=== PATIENT | female | born 1930 | race Caucasian/White ===

== ENCOUNTER 2018-11-05 17:04 | Inpatient (IN) | payer MEDICARE, BC ==
[~2018-11-05] VITALS: Ht 157.5 cm; Wt 50.8 kg
[~2018-11-05 17:04] MED LIST: METO-358 PO; NIFE30TA89 PO
[2018-11-05 17:57] VITALS: BP 149/45
[2018-11-05] MEDS ORDERED: ONDANSETRON 4 MG/2 ML VIAL IV PRN (18:30)
[2018-11-05] MEDS ORDERED: MAGNESIUM HYDROXIDE 30 ML LIQUID UDC PO PRN (18:30)
[2018-11-05] MEDS ORDERED: ZOLPIDEM 5 MG TABLET PO PRN (18:30)
[2018-11-05] MEDS ORDERED: IV NORMAL SALINE 500 ML IV ONE (18:30)
[2018-11-05] MEDS ORDERED: ACETAMINOPHEN 325 MG TABLET PO PRN (18:30)
[2018-11-05 19:00] VITALS: BP 154/37
--- NOTE | 2018-11-05 19:45 | NUR ---
Received pt on tele unit, under the care of MADAY LOVE. Admission time at 1730. Pt awake, AxO x4. Tele placed and noted to be SR-SB with HR of 54. Pertinent assessments and unit orientation completed. Safety precautions and comfort measures implemented. Bed in lowest locked position, bed alarm on. Call light within reach. Will continue to monitor and carry out all orders. Addendum: 11/06/18 at 0210 by CLAUDIA MONTELONGO RN Pt denies any complaints of pain, SOB or dizziness at this time. Shows no s/s of acute distress.
[2018-11-05] MEDS: IV NS 1000 ML 1,000 ML IV PRN (20:36)
[2018-11-05] MEDS: DOCUSATE SODIUM 100 MG CAPSULE PO SCH (20:51)
[2018-11-05] MEDS: ENOXAPARIN SODIUM 40 MG/0.4 ML DISP.SYRIN SQ SCH (20:54)
[2018-11-05] MEDS ORDERED: FLEET ENEMA 133 ML BOTTLE RC PRN (23:45)
[2018-11-06] VITALS (9 sets, daily range): BP systolic 110–209; BP diastolic 34–67
[2018-11-06] MEDS: HYDROCODONE/APAP 5-325MG TABLET PO PRN ×3 (03:16→14:07)
[2018-11-06 06:25] LABS: BASOPHILS % (AUTO) 0.9 % (0.0-2.0); EOSINOPHILS # (AUTO) 0.1 K/uL (0.0-0.7); EOSINOPHILS % (AUTO) 2.7 % (0.0-7.0); HEMATOCRIT 29.9 % (31.2-41.9); HEMOGLOBIN 10.5 g/dL (10.9-14.3); LYMPHOCYTES # (AUTO) 1.1 K/uL (20.0-40.0); LYMPHOCYTES % (AUTO) 20.4 % (20.5-51.5); MEAN CORPUSCULAR HEMOGLOBIN 32.6 uug (24.7-32.8); MEAN CORPUSCULAR HGB CONC 35 g/dL (32.3-35.6); MEAN CORPUSCULAR VOLUME 93.1 fL (75.5-95.3); MONOCYTES # (AUTO) 0.6 K/uL (2.0-10.0); MONOCYTES % (AUTO) 11.7 % (0.0-11.0); NEUTROPHILS # (AUTO) 3.4 K/uL (1.8-8.9); NEUTROPHILS % (AUTO) 64.3 % (38.5-71.5); PLATELET COUNT (AUTO) 175 K/uL (179-408); RED BLOOD CELL COUNT(AUTO) 3.21 MIL/uL (3.63-4.92); WHITE BLOOD COUNT (AUTO) 5.3 K/uL (3.8-11.8)
[2018-11-06 06:36] LABS: CARBON DIOXIDE 28 mmol/L (21-32); CHLORIDE 107 mmol/L (98-107); CREATININE 0.9 mg/dL (0.6-1.3); GLUCOSE 97 mg/dL (74-106); MAGNESIUM 2.3 mg/dL (1.8-2.4); PHOSPHOROUS 3.2 mg/dL (2.5-4.9); POTASSIUM 3.8 mmol/L (3.5-5.1); UREA NITROGEN, BLOOD 25 mg/dL (7-18)
--- NOTE | 2018-11-06 06:42 | NUR ---
Pt slept well t/o shift. Pain med given x1 with effect. BP controlled during shift. Safety precautions maintained at all times. Call light within reach. Will endorse accordingly. Addendum: 11/06/18 at 0647 by CLAUDIA MONTELONGO RN No n/v during shift. Denies pain, SOB or dizziness at this time. Pt shows no s/s of acute distress. Will continue to monitor.
--- NOTE | 2018-11-06 07:30 | NUR ---
RECEIVED PATIENT RESTING IN BED, NO S/S OF PAIN OR S/S OF ACUTE DISTRESS. WILL CONTINUE TREATMENT PLAN.
[2018-11-06] MEDS: METOPROLOL SUCCINATE XL 50 MG TAB.SR.24H PO SCH (08:28)
--- NOTE | 2018-11-06 08:30 | NUR ---
ADMINISTER MEDICATIONS TO PATIENT AND TOLERATED WELL, NO C/O OF PAIN OR DISCOMFORT AT THIS TIME. PROVEDED COMFORT AT ALL TIMES.
[2018-11-06] MEDS ORDERED: NIFEdipine XL 30 MG TABSR PO SCH (09:00)
[2018-11-06] MEDS ORDERED: METOPROLOL SUCCINATE XL 100 MG TAB.SR.24H PO SCH (09:00)
[2018-11-06] MEDS ORDERED: IV NORMAL SALINE 500 ML IV ONE (09:30)
[2018-11-06] MEDS: IV NS 1000 ML 1,000 ML IV PRN (10:16)
[2018-11-06] MEDS ORDERED: NIFEdipine XL 30 MG TABSR PO ONE ×2 (11:15→11:30)
[2018-11-06] MEDS ORDERED: hydrALAZINE HCL 20 MG/1 ML VIAL IV PRN (11:30)
--- NOTE | 2018-11-06 11:30 | NUR ---
MADAY LOVE, SEEN PATIENT AND NOTIFIED OF PATIENT HIGH BLOOD PRESSURE DURING SITTING , LAYING, AND STANDING WITH ORDER OF IV NS 500ML. AT 10:00,PATIENT REPORTED PAIN IN HER LEFT LEG AND PRN PAIN MEDICATION GIVEN, NO ACUTE DISTRESS NOTED AT THIS TIME , CONTINUE TO MONITOR. AT 10:50 PT THERAPY VISITED PATIENT TO EVAL AND UNABLE TO TREAT DUE TO HIGH BLOOD PRESSURE AND ENSURE THAT THEY WILL COME BACK IN THE AFTERNOON TO SEE THE PATIENT . AT 11:15 PATIENT SEEN AND EVAL BY DR CORREA, AND NOTIFIED ABOUT THE PATIENT'S HIGH BLOOD PRESSURE WITH ORDER OF INCREASED PROCARDIA 90MG.
[2018-11-06] MEDS: hydrALAZINE HCL 25 MG TABLET PO PRN (14:06)
--- NOTE | 2018-11-06 14:15 | NUR ---
PATIENT REPORTED PAIN AND PRN PAIN MEDS GIVEN AND HOT COMPRESS GIVEN. PT THERAPY CAME TO REVISIT AND FOLLOW UP WITH THE PATIENT.
--- NOTE | 2018-11-06 16:10 | NUR ---
CHECK PATIENT WITH NO C/O PAIN OR DISCOMFORT AT THIS TIME, PATIENT LAYING IN BED , CALM AND WATCHING TV. CHECK BLOOD PRESSURE , 157/34 AND HR 63. CONTINUE TO PROVIDE COMFORT AND SAFETY AT ALL TIMES.
[2018-11-06] MEDS ORDERED: MORPHINE SULFATE 2 MG/1 ML DISP.SYRIN IV PRN (18:15)
[2018-11-06] MEDS: MORPHINE SULFATE 4 MG/1 ML DISP.SYRIN IV PRN (18:19)
--- NOTE | 2018-11-06 18:25 | NUR ---
PATIENT CONTINUE WITH PAIN AFTER NORCO WAS GIVEN, NOTIFIED KATE, N.P., WITH NEW ORDERS OF MORPHINE 1MG IV q4H PRN, ADMINISTERED AND TOLERATED WELL, WILL CONTINUE TO MONITOR
--- NOTE | 2018-11-06 19:45 | NUR ---
Pt awake, sitting up in bed. Tele noted to be SR with HR of 64. Discussed plan of care with pt, pt cooperative. Pt complains of no pain at this time. Denies SOB, dizziness or n/v. Safety precautions and comfort measures in place. Bed alarm on, call light within reach. Will continue to monitor and carry out all orders.
[2018-11-06] MEDS: ENOXAPARIN SODIUM 40 MG/0.4 ML DISP.SYRIN SQ SCH (20:00)
[2018-11-06] MEDS: DOCUSATE SODIUM 100 MG CAPSULE PO SCH (20:00)
[2018-11-07] VITALS: BP 149/41
[2018-11-07] MEDS: HYDROCODONE/APAP 5-325MG TABLET PO PRN ×2 (00:21→07:59)
[2018-11-07] MEDS: IV NS 1000 ML 1,000 ML IV PRN ×2 (03:50→17:53)
[2018-11-07 04:00] VITALS: BP 127/36
--- NOTE | 2018-11-07 04:15 | NUR ---
Pt IV site infiltrated. IV removed, elevated affected arm, provided pt with warm compress. Insertion of new IV on Left wrist 22 gauge. IV site patent with no s/s of redness or swelling. Pt has no complaints of pain, shows no signs of acute distress. Will continue to monitor.
[2018-11-07 06:16] LABS: BASOPHILS % (AUTO) 0.6 % (0.0-2.0); EOSINOPHILS # (AUTO) 0.1 K/uL (0.0-0.7); EOSINOPHILS % (AUTO) 2.5 % (0.0-7.0); HEMATOCRIT 31.2 % (31.2-41.9); HEMOGLOBIN 10.6 g/dL (10.9-14.3); LYMPHOCYTES # (AUTO) 1.2 K/uL (20.0-40.0); MEAN CORPUSCULAR HEMOGLOBIN 31.7 uug (24.7-32.8); MEAN CORPUSCULAR HGB CONC 34 g/dL (32.3-35.6); MEAN CORPUSCULAR VOLUME 93.9 fL (75.5-95.3); MONOCYTES # (AUTO) 0.6 K/uL (2.0-10.0); NEUTROPHILS # (AUTO) 3.9 K/uL (1.8-8.9); NEUTROPHILS % (AUTO) 65.9 % (38.5-71.5); PLATELET COUNT (AUTO) 177 K/uL (179-408); RED BLOOD CELL COUNT(AUTO) 3.33 MIL/uL (3.63-4.92); WHITE BLOOD COUNT (AUTO) 5.9 K/uL (3.8-11.8)
[2018-11-07 06:32] LABS: CARBON DIOXIDE 28 mmol/L (21-32); CHLORIDE 109 mmol/L (98-107); CREATININE 0.8 mg/dL (0.6-1.3); GLUCOSE 97 mg/dL (74-106); MAGNESIUM 2.1 mg/dL (1.8-2.4); PHOSPHOROUS 3.1 mg/dL (2.5-4.9); UREA NITROGEN, BLOOD 17 mg/dL (7-18)
[2018-11-07 07:58] VITALS: BP 168/45
[2018-11-07] MEDS: NIFEdipine XL 90 MG TABSR PO SCH (08:00)
[2018-11-07] MEDS: METOPROLOL SUCCINATE XL 50 MG TAB.SR.24H PO SCH (08:00)
[2018-11-07] MEDS ORDERED: NIFEdipine XL 60 MG TABSR PO SCH ×2 (09:00)
[2018-11-07] MEDS ORDERED: NIFEdipine XL 30 MG TABSR PO SCH (09:00)
[2018-11-07 11:13] VITALS: BP 166/58
[2018-11-07] MEDS: hydrALAZINE HCL 25 MG TABLET PO PRN (12:55)
[2018-11-07] MEDS ORDERED: IV NORMAL SALINE 250 ML IV ONE (14:27)
[2018-11-07] MEDS ORDERED: SWABABLE VALVE TRANSFER SET EA MC ONE (14:27)
[2018-11-07] MEDS ORDERED: IOHEXOL 300MG/ML 100 ML INFUS..BTL ONE (14:27)
[2018-11-07] MEDS ORDERED: BISACODYL 10 MG SUPP.RECT RC PRN (14:45)
[2018-11-07 15:18] VITALS: BP 126/36
--- NOTE | 2018-11-07 19:00 | NUR ---
Received patient lying on bed awake alert oriented . Verbally responsive .Able to make needs known . On low bed position . Side rails up as appropriate . No s/s of distress noted . Afebrile . All needs met and attended . Kept clean and dry .
[2018-11-07 19:58] VITALS: BP 139/40
[2018-11-07] MEDS: DOCUSATE SODIUM 100 MG CAPSULE PO SCH (21:46)
[2018-11-07] MEDS: ENOXAPARIN SODIUM 40 MG/0.4 ML DISP.SYRIN SQ SCH (21:47)
--- NOTE | 2018-11-08 03:36 | NUR ---
Patient refused to wear DVT pump sleeves . Gets agitated .Explained risks factors .
[2018-11-08 04:39] VITALS: BP 155/43
[2018-11-08] MEDS: MORPHINE SULFATE 4 MG/1 ML DISP.SYRIN IV PRN (05:53)
--- NOTE | 2018-11-08 07:18 | NUR ---
PATIENT SLEPT MOST OF THE NIGHT, ASSISTED WITH TOILETING, CONT ON PAIN MANAGEMENT OF LEFT LEG AND LEFT GROIN/PELVIC AREA, BP STABLE, CONT TO REFUSED DVT PUMP SLEVES. ENDORSED TO NEXT SHIFT.
--- NOTE | 2018-11-08 08:04 | NUR ---
Awake, alert, complaining of left pelvic pain. Noted left heel black, elevated over rolled towel and pillow to off load. IVF infusing
[2018-11-08] MEDS: METOPROLOL SUCCINATE XL 50 MG TAB.SR.24H PO SCH (08:23)
[2018-11-08] MEDS: NIFEdipine XL 90 MG TABSR PO SCH (08:23)
[2018-11-08] MEDS: HYDROCODONE/APAP 5-325MG TABLET PO PRN (08:23)
--- NOTE | 2018-11-08 11:00 | NUR ---
Bed bath given. Wound care done to left heel. Heels Off lead over pillows. Noted sacral redness. Z guard applied. Turned to sides. Air mattress ordered.
[2018-11-08] MEDS: IV NS 1000 ML 1,000 ML IV PRN (11:05)
[2018-11-08 11:37] VITALS: BP 146/41
--- NOTE | 2018-11-08 14:00 | NUR ---
Turned to sides. Off loading of heels over pillow.
[2018-11-08] MEDS ORDERED: Z GUARD REMEDY PASTE 57 GM TUBE TOP PRN (15:00)
[2018-11-08 16:18] VITALS: BP 149/48
--- NOTE | 2018-11-08 18:34 | NUR ---
With fair appetite. Kept dry and comfortable
--- NOTE | 2018-11-08 19:30 | NUR ---
RECEIVED PATIENT IN BED ALERT ORIENTED, NO COMPLAIN OF PAIN AT THIS TIME. KEPT BILATERAL HEELS FLOATED WITH PILLOW, REORIENT PATIENT THAT SHE NEEDS TO BE REPOSITION EVERY TWO HOURS TO PREVENT SORES. KEPT CLEAN AND DRY, CALL LIGHT WITHIN REACH.
[2018-11-08 20:00] VITALS: BP 145/40
[2018-11-08] MEDS: DOCUSATE SODIUM 100 MG CAPSULE PO SCH (20:23)
[2018-11-08] MEDS: ENOXAPARIN SODIUM 40 MG/0.4 ML DISP.SYRIN SQ SCH (20:24)
[2018-11-08] MEDS: OXYCODONE HCL 5 MG TABLET PO PRN (21:02)
[2018-11-09] MEDS: IV NS 1000 ML 1,000 ML IV PRN ×2 (02:51→14:53)
[2018-11-09] MEDS: OXYCODONE HCL 5 MG TABLET PO PRN ×2 (05:39→11:40)
--- NOTE | 2018-11-09 06:39 | NUR ---
PATIENT SLEPT FOR AT LEAST 8 HRS, CONT ON PAIN MANAGEMENT OF LEFT PELVIC, LEFT THIGH/LEG PAIN, KEPT BOTH HEELS FLOATED WITH PILLOW, ASSISTED WITH TOILETING. CONT TO MONITOR.
[2018-11-09 06:46] VITALS: BP 167/43
[2018-11-09 08:20] VITALS: BP 190/92
[2018-11-09] MEDS: METOPROLOL SUCCINATE XL 50 MG TAB.SR.24H PO SCH (08:23)
[2018-11-09] MEDS: NIFEdipine XL 90 MG TABSR PO SCH (08:24)
--- NOTE | 2018-11-09 15:50 | NUR ---
PATIENT TRANSFERRED FROM ICU. PATIENT IS IN STABLE CONDITION. RESTING COMFORTABLY. IV PATENT AND INTACT. Addendum: 11/09/18 at 1834 by SWETA GARCIA RN DISREGARD, WRONG PATIENT.
[2018-11-09 16:20] VITALS: BP 134/45
--- NOTE | 2018-11-09 18:20 | NUR ---
PATIENT ALERT AND ORIENTED, ABLE TO MAKE NEEDS KNOWN. AMBULATE TO TOILETING AND BED COMMODE WITH ASSIST, ABLE TO TOLERATE WELL. PROVIDED ALL NEEDS. NO SOB NOTED AT THIS TIME, NO C/O PAIN AT THIS TIME, WILL CONTINUE TO MONITOR. ON IV FLUID OF NS AT 75CC/HR, INTACT AND PATENT. CONTINUE TREATMENT PLAN.
[2018-11-09 20:04] VITALS: BP 161/51
--- NOTE | 2018-11-09 20:11 | NUR ---
PATIENT IS AWAKE IN BED, AAOX3. DENIES PAIN/DIZZINESS OR ANY DISTRESS ON ASSESSMENT. SAFETY MEASURES IN PLACE. WILL CONTINUE TO MONITOR PATIENT
[2018-11-09] MEDS: ENOXAPARIN SODIUM 40 MG/0.4 ML DISP.SYRIN SQ SCH (21:00)
[2018-11-09] MEDS: DOCUSATE SODIUM 100 MG CAPSULE PO SCH (21:16)
[2018-11-09] MEDS: hydrALAZINE HCL 25 MG TABLET PO PRN (22:04)
[2018-11-10] MEDS: OXYCODONE HCL 5 MG TABLET PO PRN ×3 (00:12→20:57)
[2018-11-10 05:16] VITALS: BP 100/52
--- NOTE | 2018-11-10 06:23 | NUR ---
PATIENT SLEPT ON AND OFF THROUGHOUT THE SHIFT, PAIN MEDS GIVEN WITH EFFECT. PRN BP MEDS ORDERED, BP MANAGED AT PRESENT. NO S/S OF PAIN OR ACUTE DISTRESS, NO C/O DIZZINESS ON THIS SHIFT. NO FURTHER CHANGES IN STATUS. SAFETY MEASURES MAINTAINED AT ALL TIMES
[2018-11-10] MEDS: hydrALAZINE HCL 25 MG TABLET PO PRN ×2 (06:26→12:07)
[2018-11-10 08:35] VITALS: BP 187/40
[2018-11-10] MEDS: NIFEdipine XL 90 MG TABSR PO SCH (08:40)
[2018-11-10] MEDS: METOPROLOL SUCCINATE XL 50 MG TAB.SR.24H PO SCH (08:41)
[2018-11-10] MEDS: IV NS 1000 ML 1,000 ML IV PRN (09:59)
[2018-11-10 11:00] VITALS: BP 174/60
[2018-11-10] MEDS: hydrALAZINE HCL 25 MG TABLET PO SCH ×2 (14:33→20:24)
[2018-11-10 15:08] VITALS: BP 142/50
--- NOTE | 2018-11-10 18:48 | NUR ---
patient is resting comfortably in bed at this time. patient is able to verbalize needs at this time. patient worked with physical therapy today and was able to walk around the unit. patient was able to ambulate to the restroom with standby assistance. patient eats based on her the presentation of food. educated patient the importance of eating and having adequate nutrition. attempted to place mepilex on the left heel, patient refuses the application of mepilex and states "I don't want it, it doesn't work, I want my foot on the pillow instead." daughter has been contacted about possible discharge. daughter discussed that she will have a caregiver tomorrow to take care of her at home and pick her up for discharge.
--- NOTE | 2018-11-10 19:45 | NUR ---
RECEIVED PATIENT IN BED, ALERT ORIENTED, NO COMPLAIN OF PAIN AT THIS TIME. TURN AND REPOSITION, PATIENT CONTINUE TO REFUSED DVT SLEEVES, KEPT BILATERAL HEELS ELEVATED, ASSISTED WITH TOILETING, CONT TO MONITOR FOR PAIN, PATIENT REFUSED TO EAT DINNER, DRINK JUICE AT THIS TIME. CONT TO MONITOR
[2018-11-10 20:00] VITALS: BP 164/56
[2018-11-10] MEDS: DOCUSATE SODIUM 100 MG CAPSULE PO SCH (20:23)
[2018-11-10] MEDS: ENOXAPARIN SODIUM 40 MG/0.4 ML DISP.SYRIN SQ SCH (20:24)
[2018-11-11 04:00] VITALS: BP 169/71
[2018-11-11] MEDS: hydrALAZINE HCL 25 MG TABLET PO SCH (05:14)
--- NOTE | 2018-11-11 06:30 | NUR ---
PATIENT SLEPT MOST OF THE NIGHT, CONT ON PAIN MANAGEMENT OF LEFT THIGH, AND LEFT GROIN, TURN AND REPOSITION, KEPT CLEAN AND DRY, CALL LIGHT WITHIN REACH.
[2018-11-11 06:32] LABS: BASOPHILS % (AUTO) 0.3 % (0.0-2.0); EOSINOPHILS # (AUTO) 0.2 K/uL (0.0-0.7); EOSINOPHILS % (AUTO) 2.3 % (0.0-7.0); HEMATOCRIT 31.6 % (31.2-41.9); HEMOGLOBIN 10.8 g/dL (10.9-14.3); MEAN CORPUSCULAR HEMOGLOBIN 32.2 uug (24.7-32.8); MEAN CORPUSCULAR HGB CONC 34 g/dL (32.3-35.6); MEAN CORPUSCULAR VOLUME 94.4 fL (75.5-95.3); MONOCYTES # (AUTO) 0.7 K/uL (2.0-10.0); NEUTROPHILS # (AUTO) 5.4 K/uL (1.8-8.9); NEUTROPHILS % (AUTO) 73.4 % (38.5-71.5); PLATELET COUNT (AUTO) 154 K/uL (179-408); RED BLOOD CELL COUNT(AUTO) 3.35 MIL/uL (3.63-4.92); WHITE BLOOD COUNT (AUTO) 7.4 K/uL (3.8-11.8)
[2018-11-11 06:46] LABS: CARBON DIOXIDE 27 mmol/L (21-32); CHLORIDE 107 mmol/L (98-107); CREATININE 0.8 mg/dL (0.6-1.3); GLUCOSE 100 mg/dL (74-106); MAGNESIUM 1.8 mg/dL (1.8-2.4); PHOSPHOROUS 3.5 mg/dL (2.5-4.9); POTASSIUM 3.5 mmol/L (3.5-5.1); UREA NITROGEN, BLOOD 17 mg/dL (7-18)
[2018-11-11 08:01] VITALS: BP 161/55
[2018-11-11] MEDS: METOPROLOL SUCCINATE XL 50 MG TAB.SR.24H PO SCH (08:07)
[2018-11-11] MEDS: OXYCODONE HCL 5 MG TABLET PO PRN (08:07)
[2018-11-11] MEDS: NIFEdipine XL 90 MG TABSR PO SCH (08:08)
[2018-11-11 12:00] VITALS: BP 143/63
[2018-11-11] MEDS: hydrALAZINE HCL 50 MG TABLET PO SCH ×2 (13:52→21:03)
[2018-11-11] MEDS ORDERED: hydrALAZINE HCL 25 MG TABLET PO SCH (14:00)
[2018-11-11 16:11] VITALS: BP 122/46
--- NOTE | 2018-11-11 18:50 | NUR ---
patient slept most of the time through out the shift. spoke to naren Haro about possible discharge to ARU tomorrow. daughter deborah was called and notified and agrees with plan. patient denies any pain or discomfort at this time. patient is alert and oriented to her own ability. patient is compliant with medication administration and regimen. patient is able to verbalize needs. will endorse to shift manager nurse the continuity of care.
[2018-11-11 19:25] VITALS: BP 140/51
--- NOTE | 2018-11-11 20:00 | NUR ---
Received patient laying comfortably in bed. No acute distress noted. A/O x 3. Denies pain or SOB. Patient is on room air. on [employer] mattress. Noted wounds on the bilateral elbow and knees and sacral. Mepilex on the left heel and off loading. Assisted patient to the rest room with a wheel chair. Patient needs standby assist. Safety initiated. call light within reach. Bed alarm on. Will closely monitor.
[2018-11-11] MEDS: ENOXAPARIN SODIUM 40 MG/0.4 ML DISP.SYRIN SQ SCH (20:37)
[2018-11-11] MEDS: DOCUSATE SODIUM 100 MG CAPSULE PO SCH (20:38)
[2018-11-12 03:49] VITALS: BP 128/47
[2018-11-12] MEDS: hydrALAZINE HCL 50 MG TABLET PO SCH ×3 (05:07→21:25)
[2018-11-12] MEDS: OXYCODONE HCL 5 MG TABLET PO PRN (05:08)
--- NOTE | 2018-11-12 05:38 | NUR ---
Patient slept t/o shift. No acute distress. Denies pain. Vital signs stable. Report pain in her legs 06/27. Medication given, stated relief. Good urine output. Safety and comfort measures maintained t/o shift. Wound care provided. All meds given as ordered. All needs met.
--- NOTE | 2018-11-12 07:36 | NUR ---
patient resting comfortably in bed at this time. no signs of distress. stable condition. wheel chair at bedside. call light within reach. no complaints of dizziness, lightheadedness at this time. bed alarm on. possible D/C to ARU today. safety measures implemented. will continue to monitor.
[2018-11-12] MEDS: NIFEdipine XL 90 MG TABSR PO SCH (08:26)
[2018-11-12] MEDS: METOPROLOL SUCCINATE XL 50 MG TAB.SR.24H PO SCH (08:32)
[2018-11-12 08:43] VITALS: BP 163/51
[2018-11-12 12:00] VITALS: BP 121/46
[2018-11-12 15:55] VITALS: BP 106/51
--- NOTE | 2018-11-12 17:39 | NUR ---
patient resting comfortably in bed at this time. tolerating dinner. no signs of aspiration. No complaints of dizziness, headache, or lightheadedness. Blood pressure has improved. Possible D/C tomorrow to [facility]. Heels offloaded. Mepilex on left heel. on [employer] Mattress. Bed alarm on, call light within reach of patient. safety measures implemented. will continue to monitor until end of shift.
[2018-11-12 19:50] VITALS: BP 126/48
--- NOTE | 2018-11-12 20:00 | NUR ---
Patient received in bed. AAO x3. Able to make needs known. No sign of acute distress or SOB was noted. On room air. No Complain of pain at this time. Patient assessed. Safety measures maintained. Has Iv line on left wrist G 20, no sign of inflammation. Fall prevention observed. Bed in low position, brake and alarm on, side rails up x2. Call light and personal belongings within reach. Will continue to monitor.
[2018-11-12] MEDS: DOCUSATE SODIUM 100 MG CAPSULE PO SCH (20:36)
[2018-11-12] MEDS: ENOXAPARIN SODIUM 40 MG/0.4 ML DISP.SYRIN SQ SCH (20:37)
[2018-11-13 05:30] VITALS: BP 156/55
[2018-11-13] MEDS: hydrALAZINE HCL 50 MG TABLET PO SCH (05:42)
--- NOTE | 2018-11-13 06:13 | NUR ---
End of the shift note Patient was stable throughout the shift and had a good sleep last night. No sign of acute distress or SOB noted. Medications given as ordered. IV on the left hand intact, no sign of inflammation. Safety measures maintained. All needs anticipated promptly. Fall precaution maintained. Bed in low position, brake and alarm on, side rails up x2. Call light and personal belongings within reach. Continue to monitor and will endorse to the day shift nurse accordingly.
--- NOTE | 2018-11-13 07:25 | NUR ---
received report from night stocker juan, patient in bed lightly sleeping but arousable, no distress noted at this time, bed in low position, side rails up x2.
[2018-11-13] MEDS ORDERED: NIFE60TA69 PO (07:50)
[2018-11-13] MEDS ORDERED: HYDR-4077 PO (07:50)
[2018-11-13] MEDS: NIFEdipine XL 90 MG TABSR PO SCH (08:20)
[2018-11-13] MEDS: METOPROLOL SUCCINATE XL 50 MG TAB.SR.24H PO SCH (08:20)
[2018-11-13 11:48] VITALS: BP 147/50
--- NOTE | 2018-11-13 12:45 | NUR ---
Report called to william acosta ([place]). Patient picked up by ambulance, all belongings accounted for. [facility] called to notify of transfer. Pictures were taken yesterday for discharge, patient refused to have them taken again. Vitals stable, no distress noted in patient at time of discharge. IV removed and discharge education provided. Medications retrieved from pharmacy and advised ambulance to turn this in to nurse at facility.
== END 2018-11-13 12:50 | DRG 74 ==
LOC: TELE 17:50 → MED 11-07 14:30
PROVIDERS: ADMIT Nurse Practitioner Acute Care; ATTEND Nurse Practitioner Acute Care
DX: G90.8 Other disorders of autonomic nervous system (principal); E86.0 Dehydration; I95.1 Orthostatic hypotension; E78.5 Hyperlipidemia, unspecified; E02 Subclinical iodine-deficiency hypothyroidism; S32.592D Other specified fracture of left pubis, subsequent encounter for fracture with routine healing; W19.XXXD Unspecified fall, subsequent encounter; D50.9 Iron deficiency anemia, unspecified; D69.2 Other nonthrombocytopenic purpura; M79.652 Pain in left thigh; E11.9 Type 2 diabetes mellitus without complications; M81.0 Age-related osteoporosis without current pathological fracture; L89.629 Pressure ulcer of left heel, unspecified stage; I10 Essential (primary) hypertension; M79.601 Pain in right arm; G31.9 Degenerative disease of nervous system, unspecified; I67.2 Cerebral atherosclerosis; Z79.899 Other long term (current) drug therapy
CPT/HCPCS: 36415; 70450; 73551; 83735; 84100; 85025; 97110; 97116; 97530; A4663; G0378; J1650; J2270; J2405; J7030; J7040; J7050; Q9967